=== PATIENT | male | born 1975 | race American Indian/Alaskan Native ===

== ENCOUNTER 2018-04-25 18:22 | Emergency (ER) | payer OTHER ==
--- NOTE | 2018-04-25 21:24 | XRay Report ---
FINAL REPORT PROCEDURE: XR SHOULDER 2+V RT TECHNIQUE: Right shoulder radiographs including AP views in internal and external rotation and abduction. CPT 65231 HISTORY: shoulder injury COMPARISON: No prior studies are available for comparison. FINDINGS: Fracture (s) and/or Dislocation(s): None . Joint space(s): Normal . Soft tissues: Normal . Bone mineralization: Minimal degree osteophyte formation is noted involving right acromioclavicular joint. Foreign bodies: None . IMPRESSION: Minimal degree right acromioclavicular osteoarthritis. No acute fracture.
--- NOTE | 2018-04-26 00:59 | Emergency Department Report ---
Upper Extremity - HPI Chief Complaint: Extremity Injury, Upper Stated Complaint: RIGHT SHOULDER PAIN Time Seen by Provider: 04/26/18 00:54 Upper Extremity: Right Shoulder Occurred When: Today Mechanism: Other (lifting a heavy bag) Symptoms: Yes Pain with Movement, No Deformity, No Limited Range of Movement, No Numbness, No Weakness, No Swelling, No Bruising/Ecchymosis, No Laceration or Abrasion Other History: 43-year-old -[place] male presents to the emergency room for right shoulder pain from lifting a heavy object today this morning about 9: 45 AM. Patient has not taken any pain medication. He reports his pain is 6 out of 10. Patient reports that he heard something pop when he lifted a heavy object. Moving the arm in certain positions such as reaching to his back makes the pain worse. Keeping it still makes it better. Patient has no past medical history currently takes no medications on a daily basis and has no known drug allergies. ED Review of Systems ROS: Stated complaint: RIGHT SHOULDER PAIN Other details as noted in HPI Comment: All other systems reviewed and negative Musculoskeletal: arthralgia (right shoulder pain). denies: joint swelling ED Past Medical Hx - Past Medical History Previous Medical History?: No - Surgical History Past Surgical History?: No - Social History Smoking Status: Never Smoker Substance Use Type: None - Medications Home Medications: Home Medications Medication Instructions Recorded Confirmed Last Taken Type Ibuprofen [Motrin 600 MG tab] 600 mg PO Q8H PRN #30 tablet 04/26/18 Unknown Rx Upper Extremity Exam - Exam General: Vital signs noted. No distress. Alert and acting appropriately. Head and Torso: No HEENT Abnormality, No Neck Tenderness, No Chest/Lungs Abnormality, No Abdominal Tenderness, No Back Tenderness Shoulder Exam: Yes Clavicle Tenderness, Yes Normal Range of Motion in Shoulder, No Shoulder Tenderness, No Shoulder Deformity, No AC Joint Tenderness Arm Exam: No Arm/Humerus Tenderness, No Arm Deformity Elbow: No Elbow Tenderness, No Normal Range of Motion in Elbow, No Elbow Deformity Forearm: No Forearm Tenderness, No Forearm Deformity, No Pain with Pronation, No Pain with Supination Wrist: Yes Normal ROM in Wrist, No Wrist Tenderness, No Wrist Deformity, No Snuffbox Tenderness, No Pain with Axial Thumb Compression Hand: Yes Normal ROM in Digit(s), No Hand Tenderness, No Hand Deformity, No Digit Tenderness, No Digit(s) Deformity, No Tendon Dysfunction CMS Exam: No Broken Skin, No Normal Distal Pulses, No Normal Capillary Refill, No Normal Distal Sensation ED Course Vital Signs 04/25/18 18:35 Temperature 98 F Pulse Rate 64 Respiratory 16 Rate Blood Pressure 127/88 O2 Sat by Pulse 100 Oximetry ED Medical Decision Making - Radiology Data Radiology results: report reviewed, image reviewed FINAL REPORT PROCEDURE: XR SHOULDER 2+V RT TECHNIQUE: Right shoulder radiographs including AP views in internal and external rotation and abduction. CPT 65989 HISTORY: shoulder injury COMPARISON: No prior studies are available for comparison. FINDINGS: Fracture (s) and/or Dislocation(s): None . Joint space(s): Normal . Soft tissues: Normal . Bone mineralization: Minimal degree osteophyte formation is noted involving right acromioclavicular joint. Foreign bodies: None . IMPRESSION: Minimal degree right acromioclavicular osteoarthritis. No acute fracture. Transcribed By: [facility] [place] Dictated By: ROBIN RILEY Electronically Authenticated By: ROBIN RILEY Signed Date/Time: 04/25/182122 DD/ 22 TD/TT: 04/25/182122 - Medical Decision Making Patient has been evaluated by this provider in fast track. X-rays shows no fractures. Pain medication was offered to patient for pain management patient declined. Will refer patient to orthopedist if pain persists or gets worse. Recommend patient to take [id number] Motrin for pain management. Critical care attestation.: If time is entered above; I have spent that time in minutes in the direct care of this critically ill patient, excluding procedure time. ED Disposition Clinical Impression: Strain of shoulder, right Qualifiers: Encounter type: initial encounter Qualified Code(s): S46.911A - Strain of unspecified muscle, fascia and tendon at shoulder and upper arm level, right arm , initial encounter Disposition: DC-01 TO HOME OR SELFCARE Is pt being admited?: No Does the pt Need Aspirin: No Condition: Stable Instructions: Rotator Cuff Injury (ED) Additional Instructions: Please take pain medication as needed. Please follow-up with an orthopedic provider if her symptoms persist or gets worse. I recommend resting of the shoulder he can apply ice to the shoulder as needed. Please avoid lifting heavy objects for the next 2 weeks. Prescriptions: Ibuprofen [Motrin 600 MG tab] 600 mg PO Q8H PRN #30 tablet PRN Reason: Pain Referrals: PRIMARY CARE, [Primary Care Provider] - 3-5 Days EFREN PATTON MD [Staff Physician] - 3-5 Days ROIANA FONTAINE MD [Staff Physician] - 3-5 Days Forms: Work/School Release Form(ED)
[2018-04-26 01:42] VITALS: BP 130/90
== END 2018-04-26 01:42 | disposition home or self-care (01) ==
LOC: ED 18:22
DX: S46.911A Strain of unspecified muscle, fascia and tendon at shoulder and upper arm level, right arm, initial encounter (principal); X58.XXXA Exposure to other specified factors, initial encounter; Y93.89 Activity, other specified; Y92.89 Other specified places as the place of occurrence of the external cause; Y99.8 Other external cause status
CPT/HCPCS: 99283